=== PATIENT | male | born 1950 | race African-American/Black ===

== ENCOUNTER 2019-06-29 20:20 | Inpatient (IN) | payer MEDICARE, OTHER ==
[~2019-06-29] VITALS: Ht 198.1 cm; Wt 77.1 kg
[2019-06-30] MEDS ORDERED: ONDANSETRON HCL 4MG/2ML INJ IV SCH (00:02)
[2019-06-30] MEDS ORDERED: SODIUM CHLORIDE 0.9% 1,000 ML IV ONE (01:00)
[2019-06-30 01:05] LABS: BASOPHILS % 0.7 % (0.0-2.0); EOSINOPHILS % 0.4 % (0.0-5.0); HEMATOCRIT. 26.8 % (42.0-52.0); HEMOGLOBIN. 8.9 g/dL (14.0-18.0); MEAN CORPUSCULAR HEMOGLOBIN 27.2 pg (28.0-32.0); MEAN CORPUSCULAR VOLUME 81.6 fL (80.0-94.0); MEAN PLATELET VOLUME 6.8 fl (7.4-10.4); MONOCYTES % 6.6 % (2.0-8.0); NEUTROPHILS % 77.3 % (40.0-76.0); PLATELET 193 x1000/uL (130-400); RED BLOOD CELL COUNT 3.29 mill/uL (4.7-6.1); RED CELL DISTRIBUTION WIDTH 16.5 % (11.6-14.6)
[2019-06-30 01:07] LABS: CLARITY URINE TURBID (CLEAR); COLOR URINE YELLOW (YELLOW); KETONES URINE 1+ (NEGATIVE); LEUKOCYTE ESTERASE URINE 3+ (NEGATIVE); NITRITE URINE POSITIVE (NEGATIVE); OCCULT BLOOD URINE 1+ (NEGATIVE); PH URINE 7.5 (4.5-8.0); PROTEIN URINE 1+ (NEGATIVE); SPECIFIC GRAVITY URINE 1.013 (1.005-1.030); UROBILINOGEN URINE 0.2 E.U./dL (0.2-1.0)
[2019-06-30 01:08] LABS: CHLORIDE 100 mEq/L (98-107); INR 1.3; PROTHROMBIN TIME 13.1 sec (9.6-11.0)
[2019-06-30] MEDS ORDERED: MORPHINE SULFATE 4 MG/ML CPJ (NOT FOR IM USE) IV ONE (01:15)
[2019-06-30] MEDS ORDERED: KETOROLAC 30MG/ML VIAL IV ONE (03:30)
[2019-06-30] MEDS ORDERED: HYDROCODONE/ACETAMINOPHEN 5/325MG TABLET PO ONE (05:45)
[2019-06-30] MEDS ORDERED: DOCUSATE SODIUM 100MG CAPSULE PO PRN (07:30)
[2019-06-30] MEDS ORDERED: MORPHINE SULFATE 2 MG/ML CPJ (NOT FOR IM USE) IV PRN (07:30)
[2019-06-30] MEDS ORDERED: LORAZEPAM 0.5MG TABLET PO PRN (07:30)
[2019-06-30] MEDS ORDERED: LEVOFLOXACIN 500MG PREMIX 100 ML IV SCH (07:30)
[2019-06-30] MEDS ORDERED: GUAIFENESIN 200MG/10ML SUGAR FREE UDC PO PRN (07:30)
[2019-06-30] MEDS ORDERED: MAGNESIUM/ALUMINUM HYDROXIDE/SIMETHICONE 30ML UDC PO PRN (07:30)
[2019-06-30] MEDS ORDERED: ONDANSETRON HCL 4MG/2ML INJ IV PRN (07:30)
[2019-06-30] MEDS ORDERED: IPRATROPIUM/ALBUTEROL 0.5-3(2.5)MG/3ML NEB NEB PRN (07:30)
[2019-06-30] MEDS ORDERED: ZOLPIDEM TARTRATE 5MG TABLET PO PRN (07:30)
[2019-06-30 08:36] LABS: FOLIC ACID (FOLATE) SERUM >20 ng/mL ng/mL (>5.38)
[2019-06-30 08:47] LABS: VITAMIN B12 SERUM 1650 pg/mL (211-911)
[2019-06-30 09:00] VITALS: BP 150/84
[2019-06-30] MEDS: ENOXAPARIN 40MG/0.4ML SYR SUBCUT SCH (09:00)
[2019-06-30] MEDS ORDERED: CEFTRIAXONE 1 G PREMIX 50 ML IV SCH (09:00)
[2019-06-30] MEDS: METOPROLOL TARTRATE 25MG TABLET PO SCH ×2 (10:46→21:09)
[2019-06-30] MEDS: ZINC SULFATE 220 MG ( 50 ) CAPSULE PO SCH (10:46)
[2019-06-30] MEDS: ASCORBIC ACID 500 MG TABLET PO SCH ×2 (10:47→21:09)
[2019-06-30] MEDS: CEFTRIAXONE 1 G PREMIX 50 ML IV SCH (10:47)
[2019-06-30] MEDS: FAMOTIDINE 20MG TABLET PO SCH ×2 (10:47→21:09)
[2019-06-30 12:00] VITALS: BP 171/98
[2019-06-30] MEDS: KETOROLAC 15MG/ML VIAL IV PRN ×2 (12:01→21:08)
[2019-06-30] MEDS: LEVOFLOXACIN 500MG PREMIX 100 ML IV SCH (15:40)
[2019-06-30 16:00] VITALS: BP 178/97
[2019-06-30] MEDS: HYDROCODONE/ACETAMINOPHEN 10/325MG TABLET PO PRN (17:34)
[2019-06-30] MEDS: CLONIDINE 0.1MG TABLET PO PRN (17:36)
[2019-06-30 20:00] VITALS: BP 128/80
[2019-07-01] MEDS: HYDROCODONE/ACETAMINOPHEN 10/325MG TABLET PO PRN (00:46)
[2019-07-01] MEDS: KETOROLAC 15MG/ML VIAL IV PRN ×3 (05:47→22:16)
[2019-07-01 08:00] VITALS: BP 147/93
[2019-07-01] MEDS: ENOXAPARIN 40MG/0.4ML SYR SUBCUT SCH ×2 (09:00→09:27)
[2019-07-01] MEDS: FAMOTIDINE 20MG TABLET PO SCH ×3 (09:00→21:00)
[2019-07-01] MEDS: ZINC SULFATE 220 MG ( 50 ) CAPSULE PO SCH (09:27)
[2019-07-01] MEDS: METOPROLOL TARTRATE 25MG TABLET PO SCH ×2 (09:27→22:00)
[2019-07-01] MEDS: ASCORBIC ACID 500 MG TABLET PO SCH ×2 (09:27→22:17)
[2019-07-01] MEDS: CEFTRIAXONE 1 G PREMIX 50 ML IV SCH (09:27)
[2019-07-01 12:00] VITALS: BP 147/89
[2019-07-01] MEDS: LEVOFLOXACIN 500MG PREMIX 100 ML IV SCH (12:11)
[2019-07-01 16:00] VITALS: BP 123/78
[2019-07-01 20:00] VITALS: BP 131/79
[2019-07-02] VITALS: BP 166/96
[2019-07-02] MEDS: CLONIDINE 0.1MG TABLET PO PRN (01:08)
[2019-07-02] MEDS: HYDROCODONE/ACETAMINOPHEN 10/325MG TABLET PO PRN (01:09)
[2019-07-02 04:00] VITALS: BP 129/76
[2019-07-02 08:00] VITALS: BP 104/65
[2019-07-02] MEDS: ASCORBIC ACID 500 MG TABLET PO SCH ×2 (08:51→21:10)
[2019-07-02] MEDS: ZINC SULFATE 220 MG ( 50 ) CAPSULE PO SCH (08:51)
[2019-07-02] MEDS: CEFTRIAXONE 1 G PREMIX 50 ML IV SCH (08:52)
[2019-07-02] MEDS: ACETAMINOPHEN 325MG TABLET PO PRN ×2 (08:58→15:51)
[2019-07-02] MEDS: FAMOTIDINE 20MG TABLET PO SCH ×2 (09:00→21:00)
[2019-07-02] MEDS: ENOXAPARIN 40MG/0.4ML SYR SUBCUT SCH (09:00)
[2019-07-02] MEDS: METOPROLOL TARTRATE 25MG TABLET PO SCH ×2 (09:00→21:00)
[2019-07-02] MEDS: LEVOFLOXACIN 500MG PREMIX 100 ML IV SCH (10:39)
[2019-07-02] MEDS: KETOROLAC 15MG/ML VIAL IV PRN ×2 (11:06→21:11)
[2019-07-02 12:00] VITALS: BP 105/62
[2019-07-02] MEDS ORDERED: LACTULOSE 20G/30ML UDC PO PRN (12:00)
[2019-07-02] MEDS ORDERED: BISACODYL 5MG TABLET PO PRN (12:00)
[2019-07-02 16:00] VITALS: BP 99/58
[2019-07-03] MEDS: HYDROCODONE/ACETAMINOPHEN 10/325MG TABLET PO PRN (03:00)
[2019-07-03] MEDS: FAMOTIDINE 20MG TABLET PO SCH ×2 (09:00→20:39)
[2019-07-03] MEDS: METOPROLOL TARTRATE 25MG TABLET PO SCH ×2 (09:00→20:39)
[2019-07-03] MEDS: ENOXAPARIN 40MG/0.4ML SYR SUBCUT SCH (09:00)
[2019-07-03] MEDS: ZINC SULFATE 220 MG ( 50 ) CAPSULE PO SCH (09:03)
[2019-07-03] MEDS: ASCORBIC ACID 500 MG TABLET PO SCH ×2 (09:03→20:37)
[2019-07-03] MEDS: CEFTRIAXONE 1 G PREMIX 50 ML IV SCH (09:58)
[2019-07-03] MEDS: KETOROLAC 15MG/ML VIAL IV PRN ×2 (10:03→20:38)
[2019-07-03] MEDS: LEVOFLOXACIN 500MG PREMIX 100 ML IV SCH (10:45)
[2019-07-03 12:24] VITALS: BP 109/59
[2019-07-03] MEDS: DILTIAZEM HCL 120MG CAPSULE CD 24HR PO SCH (17:00)
[2019-07-03] MEDS ORDERED: SODIUM CHLORIDE 0.9% 1,000 ML IV NR (17:15)
[2019-07-03] MEDS ORDERED: DILTIAZEM HCL 30MG TABLET PO SCH (18:00)
[2019-07-03 20:00] VITALS: BP_SYST 133; BP_SYST 160; BP_DIAS 70; BP_DIAS 89
[2019-07-03] MEDS: ACETAMINOPHEN 325MG TABLET PO PRN (20:37)
[2019-07-03] MEDS ORDERED: SODIUM CHLORIDE 0.9% 1,000 ML IV SCH (21:15)
[2019-07-03] MEDS ORDERED: CEFAZOLIN 1000MG PREMIX 50 ML IV SCH (22:00)
[2019-07-04] VITALS: BP 101/58
[2019-07-04 04:00] VITALS: BP 125/67
[2019-07-04 08:00] VITALS: BP 126/66
[2019-07-04] MEDS: ASCORBIC ACID 500 MG TABLET PO SCH (08:40)
[2019-07-04] MEDS: ZINC SULFATE 220 MG ( 50 ) CAPSULE PO SCH (08:40)
[2019-07-04] MEDS: DILTIAZEM HCL 120MG CAPSULE CD 24HR PO SCH (08:41)
[2019-07-04] MEDS: ENOXAPARIN 40MG/0.4ML SYR SUBCUT SCH (08:42)
[2019-07-04] MEDS: FAMOTIDINE 20MG TABLET PO SCH (08:42)
[2019-07-04] MEDS ORDERED: DILTIAZEM HCL 120MG CAPSULE CD 24HR PO SCH (09:00)
[2019-07-04 10:00] VITALS: BP 126/66
== END 2019-07-04 11:20 | DRG 872 ==
LOC: ER 21:00 → 6EST 06-30 03:57 → ENRESERV 06-30 07:16 → 6EST 07-01 00:27
PROVIDERS: ADMIT Internal Medicine; ATTEND Internal Medicine
DX: A41.9 Sepsis, unspecified organism (principal); N39.0 Urinary tract infection, site not specified; E44.1 Mild protein-calorie malnutrition; I47.1 Supraventricular tachycardia; Z68.1 Body mass index [BMI] 19.9 or less, adult; C61 Malignant neoplasm of prostate; M48.02 Spinal stenosis, cervical region
CPT/HCPCS: 36415; 76705; 80061; 81003; 82607; 82746; 83036; 83540; 83550; 83880; 84484; 87077; 87186; 93005; 93970; 96374; 96375; 96376; 97110; 97162; 97166; 99285; C1893; J0690; J0696; J1650; J1885; J1956; J2270; J2405; J7030; J7040